=== PATIENT | male | born 1950 | race Caucasian/White ===

== ENCOUNTER 2017-03-20 22:31 | Emergency (ER) | payer OTHER ==
[~2017-03-20] VITALS: Ht 182.9 cm; Wt 131.7 kg
[~2017-03-20 22:31] MED LIST: ASCA500 PO; CALC-358 PO; DOXY100C76 PO; FRRS300 PO; MIRT30TA PO; MORPHINE PO; MULT-506 PO; NUTR-7; OMEP20CA9 PO; OXYB5TAB74 PO; PRAZ2CAP2 PO; RISP4TAB8 PO; SILD100T PO; VTMB12UNK PO; ZOLP5TAB PO; vitamin d3 PO
[2017-03-20 22:37] VITALS: BP 156/79; PULSE 70; TEMP 37; O2SAT 95; Ht 182.9 cm; Wt 131.7 kg
--- NOTE | 2017-03-20 23:03 | EMERGENCY ROOM VISIT NOTE ---
History Report prepared by Cristi: Zachery Clark Under the Supervision of: Dr. Edson Kendrick D.O. First contact with patient: 22:54 Chief Complaint: URINARY SYMPTOMS Stated Complaint: FEVER OF 100+,SWOLLEN PUBIS,BLOOD IN URINE Nursing Triage Summary: pt c/o problems urinating, ipp revision surgery on thursday, also has burning and blood with urination, u[facility] test done today at [facility] and he was told that if he got fever tonight to come in here, swelling in pubic area and some pain. History of Present Illness The patient is a 66 year old male who presents to the Emergency Room with complaints of constant penile bleeding beginning four days ago. The patient states that following a penile implant surgery four days ago, he noticed that he was experiencing painful burning when he urinated. He also notes that he noticed mild bleeding described as "diluted meat juice in a rare steak" whenever he dabbed himself to clean his gauze. He reports that he had a urinalysis done today which suggested no infection or blood in his urine. He notes that his doctor told him to come to the emergency department if his fever raised above 100. The patient states that when he checked his temperature before going to bed, his temperature was just above 100. He also notes that his pubic region is swollen. Source of History: patient Onset: four days ago Position: other (penis) Quality: burning Timing: constant Associated Symptoms: + urinary symptoms (mild levels of blood in his urine) Review of Systems See HPI for pertinent positives & negatives. A total of 10 systems reviewed and were otherwise negative. Past Medical & Surgical Surgical Problems: (1) H/O colonoscopy Family History No pertinent family history stated. Social History Smoking Status: Never Smoker Alcohol Use: none Drug Use: none Marital Status: single Housing Status: lives alone Occupation Status: retired Current/Historical Medications Scheduled Ascorbic Acid (Vitamin C *), 500 MG PO DAILY Calcium Citrate-Vitamin D (Calcium Citrate+ D), 2 TABS PO BID Cyanocobalamin (Vitamin B-12 Unkown Dose), 500 MCG PO DAILY Doxycycline Monohydrate (Monodox), 100 MG PO Q12HR Ferrous Sulfate (Iron Supplement *), 325 MG PO DAILY Mirtazapine (Remeron), 30 MG PO HS Multivitamin (Multivitamin), 1 TAB PO DAILY Nutritional Supplements (Boost), 1 CAN DAILY Omeprazole (Prilosec), 20 MG PO DAILY Oxybutynin Chloride (Ditropan), 5 MG PO HS Prazosin Hcl (Prazosin), 2 MG PO HS Risperidone (Risperdal), 2 MG PO HS Sildenafil Citrate (Viagra), 100 MG PO PRN Zolpidem Tartrate (Ambien), 5 MG PO HS [Morphine Sa], 15 MG PO BID Miscellaneous Medications [vitamin d3], 1 DOSE PO Allergies Coded Allergies: Quetiapine (Verified Allergy, HYPOTENSION, 06/28/11) Bupropion (Verified Adverse Reaction, Severe, SEIZURES, 06/28/11) Physical Exam Vital Signs Date Time Temp Pulse Resp B/P (MAP) Pulse Ox O2 Delivery O2 Flow Rate FiO2 03/20/17 22:37 37.0 70 18 156/79 95 Room Air Physical Exam CONSTITUTIONAL/VITAL SIGNS: Reviewed / noted above. GENERAL: Non-toxic in appearance. INTEGUMENTARY: Warm, dry, and [place]. HEAD: Normocephalic. EYES: without scleral icterus or trauma. ENT/OROPHARYNX: clear and moist. LYMPHADENOPATHY/NECK: Is supple without lymphadenopathy or meningismus. RESPIRATORY: Lungs clear and equal. CARDIOVASCULAR: Regular rate and rhythm. GI/ABDOMEN: Soft and nontender. No organomegaly or pulsatile mass. No rebound or guarding. Normal bowel sounds. : Penis and scrotal area is edematous, no obvious infection or abnormal discharge. EXTREMITIES: Warm and well perfused. BACK: No CVA tenderness. NEUROLOGICAL: Intact without focal deficits. PSYCHIATRIC: normal affect. MUSCULOSKELETAL: Normally developed with good muscle tone. Medical Decision & Procedures ED Course 2300: Previous medical records were reviewed. The patient was evaluated in room B8. A complete history and physical examination was performed. 2334: On reevaluation, the patient is stable. I discussed the results and findings with the patient. He verbalized agreement of the treatment plan. The patient was discharged home. Medical Decision Differential includes viral illness, influenza, streptococcal pharyngitis, meningitis, pneumonia, sinusitis, UTI, pyelonephritis, otitis media. This is a 66-year-old male who presents to the ED with a chief complaint of a low-grade fever. The patient states that his temperature earlier today was around 100. The patient had a penile implant surgery 4 days ago. He states that he had a slight burning in his urination the day of the surgery. He had his urine checked by his PCP yesterday and the urine checked out to be normal. Because of his low-grade temperature today, he was referred here. The patient denies any other sick family symptoms. He has not taken antipyretics. He states that he is not sure of his thermometer is working appropriately because his temperature here was normal. The patient denies any other significant symptoms. No nausea vomiting. No subjective fevers. His exam reveals expected changes from his urological surgery. There is no obvious infection, significant redness or discharge. After exam, I offered additional testing but he declined this as he did not have a fever here today. He states that he will monitor symptoms and follow-up with his urologist. Blood Pressure Screening Patient's blood pressure: Elevated blood pressure Blood pressure disposition: Elevated BP felt to be situational Impression Primary Impression: Symptoms of urinary tract infection Scribe Attestation The scribe's documentation has been prepared under my direction and personally reviewed by me in its entirety. I confirm that the note above accurately reflects all work, treatment, procedures, and medical decision making performed by me. Departure Information Dispostion Home / Self-Care Referrals Nba Bell M.D.([facility]) (PCP) Forms HOME CARE DOCUMENTATION FORM, IMPORTANT VISIT INFORMATION Patient Instructions My [facility] Additional Instructions Continue monitoring your temperatures and symptoms at home. Contact your urologist on Thursday with any questions or concerns or the on-call service for your doctor if you have any concerns you would like to discuss about your recent surgical procedure.
== END 2017-03-20 23:39 | disposition home or self-care (01) ==
LOC: C.EDB 22:35
DX: R39.9 Unspecified symptoms and signs involving the genitourinary system (principal)